=== PATIENT | male | born 1970 | race Caucasian/White ===

== ENCOUNTER 2024-06-07 08:22 | Emergency (ER) | payer OTHER, SELFPAY ==
--- NOTE | 2024-06-07 08:24 | ED_ITS ---
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 Patient states it occurred 4 hours ago. States that he got caught piece of metal. Contusion to the area noted with a 2 cm open area. Bleeding is controlled. 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 Treatments prior to arrival: other (Pressure dressing) Related Data Allergies Allergy/AdvReac Type Severity Reaction Status Date / Time No Known Allergies Allergy Verified 06/07/24 08:54 Review of Systems Review of Systems: All systems reviewed & are unremarkable except as noted in HPI and below Constitutional: Constitutional: Reports no additional constitutional complaints ENT: Reports system reviewed and no additional complaints, except as documented Cardiovascular: Cardiovascular: Reports no additional cardiovascular complaints, Denies chest pain and Denies dyspnea Respiratory: Respiratory: Reports no additional respiratory complaints, Denies chest congestion, Denies cough and Denies dyspnea Gastrointestinal: Gastrointestinal: Reports no additional gastrointestinal complaints, Denies abdominal pain, Denies nausea and Denies vomiting Musculoskeletal: Musculoskeletal: Reports no additional musculoskeletal complaints Integumentary/Breasts: Skin/Breast: Reports as per HPI PMFSH Comments At the time of my signature, I reviewed and agree with the nursing past medical, surgical, social, and family history. There is no relevant family history pertinent to the patient complaint. Exam Const: General: cooperative, healthy appearing, comfortable, no acute distre ss, well developed, alert and well nourished Nutritional Appearance: well nourished Orientation/consciousness: patient oriented x3 Limitations: no limitations HENMT: Head: normal to inspection Ears: hearing grossly normal bilaterally and external ears normal Face/Nose/Sinus: Normal external nose present, normal facial exam and face symmetric Face and sinus: normal facial exam and face symmetric Eyes: General: appearance normal, both eyes and all related structures Alignment and Position: alignment normal Periorbital: periorbital findings normal Neck: Neck: normal visual inspection, full ROM, no lymphadenopathy and no meningeal signs Chest: Chest palpation & inspection: normal inspection of the chest Resp: Effort & Inspection: normal respiratory effort and able to speak in complete sentences Cardio: Rate: regular rate Skin: General skin exam: normal color and no rashes or lesions noted Lesions: no lesions Rashes: no rashes Other: Right plantar heel, circular contusion, small open area, 2 cm. Otherwise abrasion. Neuro: General: patient oriented x3, gait normal, tone normal, moves all extremities and no meningeal signs Cognition (Neuro): normal cognition Speech: normal speech Gait exam (Neuro): Normal gait present Extrem: General: normal to inspection, full ROM, capillary refill normal and normal gait Psych: Appearance: grossly normal and well kempt Mental Status: mental status grossly normal Speech and movement: Normal speech and movement present and Clear speech present Affect: normal affect Attitude: cooperative Course Course Level of Care: Express Care Visit Vital Signs Vital signs: Vital Signs Temperature 97.6 F 06/07/24 08:47 Pulse Rate 73 06/07/24 08:47 Respiratory Rate 17 06/07/24 08:47 Blood Pressure 133/90 06/07/24 08:47 Pulse Oximetry 100 06/07/24 08:47 Oxygen Delivery Room Air 06/07/24 08:47 Temperature 97.6 F 06/07/24 08:47 Pulse Rate 73 06/07/24 08:47 Respiratory Rate 17 06/07/24 08:47 Blood Pressure 133/90 06/07/24 08:47 Pulse Oximetry 100 06/07/24 08:47 Oxygen Delivery Room Air 06/07/24 08:47 Reviewed Procedures Laceration Laceration 1: Date: 06/07/24 Time: 09:20 Site: lower extremity (Plantar heel) Side (If applicable): right Size (cm): 2 Description: flap Depth: simple, single layer Local Anesthetic: lidocaine 1% Amount of anesthesia used (mL): 4 Pre-repair: irrigated (100) and other (Soaked in wound cleanser and water) ====== Skin Level ====== Skin layer closed with: nylon Size (cm): 3-0 Number of sutures: 2 Technique: simple, interrupted ====== Subcutaneous Layer ====== ====== Muscle Layer ====== ====== Tendon Layer ====== Dressing: Due to open area, loosely approximated area with 2 sutures after soaking and irrigating Patient tolerated procedure MDM - Extremity Injury (Lower) MDM Narrative Medical decision making narrative: Patient sitting comfortably in exam. Nontoxic, vitals stable. Patient in no acute distress Procedure explained through amusement equipment operator. Verbal consent obtained Patient declined Tdap Patient appropriate for outpatient treatment with antibiotics, close follow-up. Discharge instructions reviewed with patient, as well as provided in writing per nursing staff. The instructions also include specific and strict return/GO TO THE ER as well as f/u information. All questions have been answered, and the patient deny any further questions with discharge and discharge plan. Some parts of this dictation were generated by voice recognition software and may contain typographical and/or grammatical inaccuracies. Differential Diagnosis Differential diagnosis: Likely other (Laceration) Critical Care Time Critical Care Time Critical Care Time: No Discharge Plan Discharge Clinical Impression: Laceration of heel without complication Patient Disposition: Home, Self-Care Condition: Stable Instructions: Antibiotic Form, Laceration (ED) Additional Instructions: Promyvayte porazhennoye mesto dva arlin v den' teploy myl'mikie voy, vytirayte nasukho. Vazhno dvazhdy v den' menyat' povyazki, nosit' chistyye noski. Prikladyvayte led kazhdyye 2?3 chasa na 15?20 minut vo vremya bodrstvovaniya. Prinimayte Taylenol, chereduya s Motrinom, po mere neobkhodimosti abby boli. Posleduyushchiy osmotr u vracha-terapevta ryan 10-14 dney dlya snyatiya 2 shvov. Prinimayte antibiotiki v sootvetstvii s predpisaniyami, chtoby snizit' veroyatnost' zarazheniya. Abby poyavlenii novykh sha ukhudshenii simptomov obrashchaytes' neposredstvenno v otdeleniye neotlozhnoy pomoshchi. Wash area twice daily with warm soapy water, pat dry. It is important to change the dressings twice daily, wear clean socks. Apply ice every 2-3 hours for 15-20 minutes while awake Take Tylenol alternating with Motrin as needed for pain Follow-up with primary doctor in 10-14 days to have the 2 sutures removed Take antibiotic as prescribed to reduce the chances of infection For new or worsening symptoms go directly to the emergency room Patient Language: [place]ian Prescriptions: New amoxicillin-pot clavulanate 875-125 mg tablet 1 tablet PO Q12H Qty: 20 0RF Follow-up/Referrals: UNKNOWN,DOCTOR [Non-Staff] - Time of Disposition: 09:42
[2024-06-07 08:47] VITALS: BP 133/90; PULSE 73; RESP 17; TEMP 36.4; O2SAT 100
[2024-06-07] MEDS: LIDOCAINE HCL 1% LOCAL INJ 2 ML AMPUL 4 ML INFILTRATE (09:08)
== END 2024-06-07 09:51 | disposition home or self-care (01) ==
PROVIDERS: Emergency Provider Nurse Practitioner
DX: S91.311A Laceration without foreign body, right foot, initial encounter (principal); W45.8XXA Other foreign body or object entering through skin, initial encounter
CPT/HCPCS: 12001; 99203; G0463; J2003